=== PATIENT | male | born 1975 | race Two or more races ===

== ENCOUNTER 2024-08-08 23:42 | Inpatient (IN) | payer OTHER ==
[~2024-08-08] VITALS: Ht 185.4 cm; Wt 103.0 kg
[2024-08-09 00:30] LABS: BASOPHILS % (AUTO) 0.4 % (0.0-2.0); HEMATOCRIT 46.5 % (41-53); HEMOGLOBIN 15.9 g/dL (13.5-17.5); LYMPHOCYTES # (AUTO) 2.4 K/uL (1.0-4.8); LYMPHOCYTES % (AUTO) 26.1 % (22.0-44.0); MEAN CORPUSCULAR HEMOGLOBIN 27.6 pg (26.0-34.0); MEAN CORPUSCULAR HGB CONC 34.3 G/dL (31.0-37.0); MEAN CORPUSCULAR VOLUME 81 fL (80-100); MONOCYTES # (AUTO) 0.9 K/uL (0.1-1.0); MONOCYTES % (AUTO) 9.7 % (2.0-9.0); NEUTROPHILS # (AUTO) 5.9 K/uL (1.8-7.7); NEUTROPHILS % (AUTO) 62.8 % (40.0-70.0); PLATELET COUNT (AUTO) 314 K/uL (150-450); RED BLOOD CELL COUNT(AUTO) 5.76 MIL/uL (4.50-5.90); RED CELL DISTRIBUTION WIDTH 15.7 % (11.5-14.5); WHITE BLOOD COUNT (AUTO) 9.3 K/uL (4.5-11.0)
[2024-08-09 00:40] LABS: ANION GAP 6 mmol/L (8-16); CALCIUM, TOTAL 9.2 mg/dL (8.8-10.5); CARBON DIOXIDE 28 mmol/L (22-29); CHLORIDE 100 mmol/L (98-107); CREATININE 1.39 mg/dL (0.60-1.30); GLOMERULAR FILTR. RATE CALC 54 mL/min (>60); GLUCOSE,RANDOM 106 mg/dL (70-110); POTASSIUM 3.9 mmol/L (3.5-5.1); SODIUM SERUM 134 mmol/L (136-145); UREA NITROGEN, BLOOD 13 mg/dL (7-18)
[2024-08-09 00:47] LABS: ALBUMIN 3.6 g/dL (3.4-5.0); BILIRUBIN,DIRECT 0.1 mg/dL (0.00-0.20); BILIRUBIN,TOTAL 0.6 mg/dL (0.1-1.0); TOTAL PROTEIN, SERUM 8.7 g/dL (6.4-8.2)
[2024-08-09 00:49] LABS: CREATINE KINASE, TOTAL ONLY 85 U/L (39-308); D-DIMER 2.87 mg/L FEU (0.00-0.50)
[2024-08-09 00:52] LABS: TROPONIN I-HIGH SENSITIVITY Less Than 4 ng/L (<76)
[2024-08-09 01:11] LABS: B-TYPE NATRIURETIC PEPTIDE 9 pg/mL (0-100)
[2024-08-09] MEDS ORDERED: IOHEXOL 350 MG/ML 100 ML VIAL ONE (01:28)
[2024-08-09] MEDS ORDERED: ACETAMINOPHEN 325 MG TABLET PO PRN (01:30)
[2024-08-09] MEDS ORDERED: IPRATROPIUM BROMIDE 0.5 MG/2.5 ML NEB SOLUTION NEB PRN (01:30)
[2024-08-09] MEDS ORDERED: ONDANSETRON HCL 4 MG/2 ML VIAL IVP PRN (01:30)
[2024-08-09] MEDS ORDERED: ALBUTEROL SULFATE 2.5 MG/0.5 ML NEB SOLUTION NEB PRN (01:30)
[2024-08-09 01:32] LABS: PROTHROMBIN TIME 10.4 SEC (9.4-11.6)
[2024-08-09 01:38] LABS: COVID AG,FIA SOURCE NASAL SWAB
[2024-08-09 01:56] LABS: INFLUENZA TYPE A NEGATIVE FOR TYPE A (NEGATIVE); INFLUENZA TYPE B NEGATIVE FOR TYPE B (NEGATIVE)
[2024-08-09 01:58] LABS: SARS-COV2 (COVID) ANTIGEN,FIA Negative (Negative)
[2024-08-09] MEDS: ACETAMINOPHEN 500 MG TABLET PO ONE (02:07)
[2024-08-09] MEDS: MORPHINE SULFATE 2 MG/ML SYRINGE IVP ONE (02:07)
[2024-08-09] MEDS: SODIUM CHLORIDE 0.9% 1,000 ML IV ONE (02:08)
[2024-08-09] MEDS ORDERED: CefTRIAXone 1 GM/DEXTROSE 50 ML IV ONE (02:45)
[2024-08-09] MEDS ORDERED: AZITHROMYCIN 500 MG/NS 250 ML IV ONE (02:45)
[2024-08-09] MEDS ORDERED: HEPARIN SODIUM,PORCINE 5,000 UNITS/ML VIAL IVP PRN ×2 (03:00)
[2024-08-09 04:29] LABS: CREATININE,URINE RANDOM 288.3 mg/dL (30.0-125.0)
[2024-08-09] MEDS: HEPARIN SODIUM,PORCINE 5,000 UNITS/ML VIAL IVP ONE (04:33)
[2024-08-09] MEDS: HEPARIN SODIUM 25000 UNITS/D5W 250 ML IV PRN (04:36)
[2024-08-09 05:20] VITALS: BP 129/82; PULSE 90; RESP 20; TEMP 97.9; O2SAT 96
[2024-08-09 07:38] LABS: TROPONIN I-HIGH SENSITIVITY 4 ng/L (<76)
[2024-08-09 08:00] VITALS: BP 107/68; PULSE 85; RESP 18; TEMP 97.3; O2SAT 96
[2024-08-09] MEDS ORDERED: HEPARIN SODIUM,PORCINE 5,000 UNITS/ML VIAL SQ SCH (08:00)
[2024-08-09] MEDS: DOCUSATE SODIUM 100 MG CAPSULE PO SCH (09:00)
[2024-08-09] MEDS: MORPHINE SULFATE 2 MG/ML SYRINGE IVP PRN (09:38)
[2024-08-09 11:07] VITALS: BP 119/75; PULSE 79; RESP 16; TEMP 98.8; O2SAT 94
[2024-08-09 15:47] VITALS: BP 119/77; PULSE 93; RESP 18; TEMP 99.3; O2SAT 97
[2024-08-11] MEDS ORDERED: APIX5TAB PO (11:21)
== END 2024-08-09 19:05 | disposition left against medical advice (07) | DRG 134 ==
LOC: EMS 23:50 → EDH 08-09 01:29 → 5S 08-09 05:38
PROVIDERS: ADMIT Internal Medicine; ATTEND Internal Medicine
DX: I26.99 Other pulmonary embolism without acute cor pulmonale (principal); N17.9 Acute kidney failure, unspecified; E22.2 Syndrome of inappropriate secretion of antidiuretic hormone; Z20.822 Contact with and (suspected) exposure to COVID-19; R74.01 Elevation of levels of liver transaminase levels; R00.0 Tachycardia, unspecified; Z53.29 Procedure and treatment not carried out because of patient's decision for other reasons; I82.412 Acute embolism and thrombosis of left femoral vein; I82.432 Acute embolism and thrombosis of left popliteal vein; Z79.899 Other long term (current) drug therapy; Z87.01 Personal history of pneumonia (recurrent)
CPT/HCPCS: 71045; 71275; 80048; 80076; 82550; 82570; 83880; 84300; 84484; 85025; 85379; 85610; 85730; 87804; 93005; 93306; 93970; 96361; 96374; 99291; J1644; J2270; J7030; 36415-L1; 36415-TC